=== PATIENT | male | born 1930 | race Caucasian/White ===

== ENCOUNTER 2020-01-06 18:25 | Emergency (ER) | payer BC, OTHER ==
[2020-01-06 18:39] VITALS: BMI 26.0
--- NOTE | 2020-01-06 21:37 | PDOC ---
Documentation entered by Kvng Last SCRIBE, acting as scribe for Ponce Olvera MD. Ponce Olvera MD: This documentation has been prepared by the Berhane paulson Angel, SCRIBE, under my direction and personally reviewed by me in its entirety. I confirm that the documentation accurately reflects all work, treatment, procedures, and medical decision making performed by me. History of Present Illness - General Chief Complaint: Lightheaded Stated Complaint: SENT FOR CATSCAN BEFORE SEEING NEUROLOGIST TOMORR Time Seen by Provider: 01/06/20 19:15 History Source: Patient Exam Limitations: No Limitations - History of Present Illness Initial Comments: 01/06/20 19:23 The patient is a 89 year old male with a significant past medical history of a dustin in his left leg who presents to the ED with dizziness and unsteady gait after a fall he had a week ago. The patient states he fell about a week ago and went to [facility] for x-rays to find out he fractured his collarbone. The patient complains of mild pain on the left side of his head but is unsure if he hit his head or not. The patient has a history of previous leg injuries, having a dustin placed in his left leg. The patient states his gait is normally unsteady due to the prior injuries but notes it being significantly more unsteady after the fall. The patient was sent in by Neurologist for CT scan before his appointment tomorrow. The patient denies LOC, vomiting, back pain or neck pain. 01/06/20 19:47 Assessment and plan: This is an 89-year-old male brought in by his son for evaluation of headache, dizziness, some mild difficulty with his gait that is worse than his baseline. As per son he has an appointment with a neurologist to address these issues however the neurologist wanted him to get a CAT scan before coming to the neurologist. So he is here for a CAT scan. Patient's neurological exam was grossly intact gait was not tested until after the CAT scan. Patient's CAT scan was read as positive for 2 small bleeds. In discussion with his family be transferred to [facility] instead amount of your hospital. [facility] was contacted and patient was accepted for transfer. Patient transferred to [facility] for a higher level of care Past History - Medical History Allergies/Adverse Reactions: Allergies Allergy/AdvReac Type Severity Reaction Status Date / Time No Known Allergies Allergy Unverified 01/06/20 18:28 Home Medications: Ambulatory Orders NK [No Known Home Medication] 01/06/20 COPD: No Other medical history: FRACTURE CLAVICLE - Psycho-Social/Smoking History Smoking History: Never smoked Information on smoking cessation initiated: No - Substance Abuse Hx (Audit-C & DAST Scrn) How often the patient has a drink containing alcohol: Never Score: In Men: 4 or > Positive; In Women: 3 or > Positive: 0 Screen Result (Pos requires Nsg. Audit-10AR): Negative In the last yr the pt used illegal drug/Rx for NonMed reason: No Score: Yes response is considered Positive: 0 Screen Result (Positive result requires Nsg. DAST-10): Negative Review of Systems - Review of Systems Able to Perform ROS?: Yes Comments:: 01/06/20 19:26 General: No fevers or chills, no weakness, no weight loss HEENT: +Slight left sided head pain. No change in vision. No sore throat. No ear pain CardioVascular: No chest pain or shortness of breath Respiratory:No cough, or wheezing. Gastrointestinal: no nausea, vomiting, diarrhea or constipation, No rectal bleeding Genitourinary: No dysuria, hematuria, or frequency Musculoskeletal: No joint or muscle pain or swelling Neurologic: +Dizziness. No headache, vertigo or loss of consciousness Psychiatric: nor depression Skin: No rashes or easy bruising Endocrine: no increased thirst or abnormal weight change Allergic: no skin or latex allergy All other systems reviewed and normal *Physical Exam - Vital Signs Last Vital Signs Temp Pulse Resp BP Pulse Ox 98 F 68 16 138/65 98 01/06/20 18:27 01/06/20 18:27 01/06/20 18:27 01/06/20 18:27 01/06/20 18:27 - Physical Exam 01/06/20 19:27 GENERAL: The patient is awake, alert, and fully oriented, in no acute distress. HEAD: Normal with no signs of trauma. EYES: Pupils equal, round and reactive to light, extraocular movements intact, sclera anicteric, conjunctiva clear. EXTREMITIES: Normal range of motion, no edema. BACK: +No contusions or cervical spine tenderness. NEUROLOGICAL: Normal speech, normal gait. PSYCH: Normal mood, normal affect. SKIN: Warm, Dry, normal turgor, no rashes or lesions noted. ED Treatment Course - LABORATORY CBC & Chemistry Diagram: 01/06/20 22:40 01/06/20 22:40 Discharge - Discharge Information Problems reviewed: Yes Clinical Impression/Diagnosis: Persistent headaches Condition: Stable Disposition: HOME - Admission No - Follow up/Referral Referrals: Donaldo Garg [Primary Care Provider] - - Patient Discharge Instructions Additional Instructions: Is important to keep your appointment with your neurologist. Tylenol as needed for headaches. Return to the emergency department immediately with ANY new, persistent or worsening symptoms. Continue any medications as previously prescribed by your physician. You should follow up with your primary doctor as soon as possible regarding today's emergency department visit. . Please make sure your doctor reviews the results of your emergency evaluation. Thank you for coming to the Emergency Department today for your care. It was a pleasure to see you today. Please note that your evaluation is INCOMPLETE until you follow-up with your doctor. - Post Discharge Activity
[2020-01-06 22:52] VITALS: BP 158/71; PULSE 72; TEMP 98.4
[2020-01-06 23:05] LABS: BASO % 0.6 % (0-2.0); EOS % 2.3 % (0-4.5); HEMATOCRIT 39.3 % (35.4-49); HEMOGLOBIN 13.1 GM/dl (11.7-16.9); INR 1.22 (0.82-1.09); LYMPH % 22.7 % (8-40); MCH 27.6 pg (25.7-33.7); MCHC 33.4 g/dl (32.0-35.9); MEAN CELL VOLUME 82.7 fl (80-96); MEAN PLT VOLUME 7.6 fl (7.5-11.1); MONO % 4.7 % (3.8-10.2); NEUT % 69.7 % (42.8-82.8); PLATELET COUNT 383 K/MM3 (134-434); PROTHROMBIN TIME (PATIENT) 13.6 SEC (10.2-13.0); RBC 4.76 M/mm3 (4.00-5.60); RDW 13.2 % (11.9-15.9); WHITE BLOOD COUNT 6.4 K/mm3 (4.0-10.8)
[2020-01-06 23:12] LABS: ALBUMIN 4.3 g/dl (3.4-5.0); BILIRUBIN,TOTAL 0.8 mg/dl (0.2-1); CALCIUM 9.1 mg/dl (8.5-10); CREATININE 0.8 mg/dl (0.55-1.3); POTASSIUM 4.2 mmol/L (3.5-5.1); TOT PROT 7.1 g/dl (6.4-8.2)
--- NOTE | 2020-01-07 10:19 | EKG ---
Test Reason : Blood Pressure : / mmHG Vent. Rate : 071 BPM Atrial Rate : 071 BPM P-R Int : 192 ms QRS Dur : 092 ms QT Int : 400 ms P-R-T Axes : 000 017 015 degrees QTc Int : 434 ms NORMAL SINUS RHYTHM NO PREVIOUS ECGS AVAILABLE Confirmed by JESUSITA BHAKTA MD ([id number]) on 01/07/2020 10:19:33 AM Referred By: DR ZAVALETA Confirmed By:JESUSITA BHAKTA MD
== END 2020-01-06 23:31 | disposition home or self-care (01) ==
LOC: FER 18:25
DX: G44.52 New daily persistent headache (NDPH) (principal)
CPT/HCPCS: 36415; 70450-TC; 71045-TC-FY; 80053; 85025; 85610; 93005; 99285-25